=== PATIENT | female | born 1960 | race Caucasian/White ===

== ENCOUNTER 2016-11-28 15:45 | Outpatient (RCR) | payer MEDICARE, MEDICAID ==
[~2016-11-28 15:45] MED LIST: ALBUTEROL0.09 MG/A1 IH; ALBUTEROL1.25 MG/3 IH; ALEVE 220MG220 MG PO; AMOXICILLIN 50500 MG PO; ASPIRIN 32325 MG/TAB PO; CEFTIN500 MG PO; CELEXA10 MG PO; CELEXA40 MG PO; CEPHALEXIN500 M1 PO; CLEOCIN HC150 MG/CAP PO; FLEXERIL10 MG PO; IPRATROPIUM BROM3 M1 IH; LORTAB 5/500 501 TAB PO; MAGIC MOUTHWASH1 M2 PO; MULTI VITAMINS1 TAB PO; NEXIUM 20MG20 MG PO; NEXIUM 40MG40 MG PO; NORCO 325 MG-51 TAB PO; PROVENTIL0.09 MG/A1 IH; PYRIDIUM200 M1 PO; SEPTRA DS 8001 TAB PO; SINGULAIR 110 MG/TAB PO; ULTRAM 50MG TAB50 MG PO; VENTOLIN0.09 MG IH; VITAMIN D 1001000 IU PO; VITAMIN D 50,1.25 MG PO; ZOLOFT 100MG100 MG PO
== END 2017-02-19 | disposition home or self-care (01) ==
LOC: MKS.ESL.OT
DX: S46.812D Strain of other muscles, fascia and tendons at shoulder and upper arm level, left arm, subsequent encounter (principal); X58.XXXD Exposure to other specified factors, subsequent encounter

== ENCOUNTER 2017-04-06 16:01 | Outpatient (RCR) | payer MEDICARE, MEDICAID | END 2017-04-10 11:12 | disposition still patient (30) | LOC: WSPT 16:01 | DX: Z01.818 Encounter for other preprocedural examination (principal) | CPT/HCPCS: G8978-GP; G8979-GP; G8980-GP ==

== ENCOUNTER 2017-05-28 16:15 | Outpatient (RCR) | payer MEDICARE, MEDICAID | END 2017-06-08 12:26 | disposition still patient (30) | LOC: WSPT 16:15 | DX: Z96.652 Presence of left artificial knee joint (principal) | CPT/HCPCS: G8978-GP; G8979-GP ==

== ENCOUNTER 2018-01-19 02:59 | Emergency (ER) | payer MEDICARE, MEDICAID ==
[~2018-01-19] VITALS: Ht 157.5 cm; Wt 74.1 kg
[2018-01-19 03:04] VITALS: BP 135/80; PULSE 65; TEMP 98.2
[2018-01-19 03:29] LABS: COLLECTION METHOD CLEAN CATCH
[2018-01-19 03:34] LABS: PH 6 (5-8); SQUAMOUS EPITHELIAL 0-2 /hpf; URINE APPEARANCE Clear; URINE BACTERIA None Seen /hpf; URINE BILIRUBIN Negative (NEGATIVE); URINE BLOOD Negative (NEGATIVE); URINE COLOR Straw; URINE GLUCOSE Negative (NEGATIVE); URINE KETONE Negative (NEGATIVE); URINE LEUKOCYTE ESTERASE Negative (NEGATIVE); URINE NITRATE Negative (NEGATIVE); URINE PROTEIN(semi-quant) Negative (NEGATIVE); URINE RBC 0-2 /hpf; URINE UROBILINOGEN Negative (NEGATIVE)
== END 2018-01-19 04:02 | disposition home or self-care (01) ==
LOC: COL.ER 02:59
PROVIDERS: Emergency Medicine
DX: R31.9 Hematuria, unspecified (principal); J45.909 Unspecified asthma, uncomplicated; Z90.710 Acquired absence of both cervix and uterus

== ENCOUNTER → 2018-06-04 | Outpatient (CLI) | payer MEDICARE, MEDICAID | LOC: COL.RAD 05-27 11:30 | DX: J98.11 Atelectasis (principal); R59.9 Enlarged lymph nodes, unspecified; Z90.710 Acquired absence of both cervix and uterus; M51.36 Other intervertebral disc degeneration, lumbar region; C91.10 Chronic lymphocytic leukemia of B-cell type not having achieved remission | CPT/HCPCS: Q9967 ==

== ENCOUNTER 2018-09-12 19:59 | Emergency (ER) | payer MEDICARE ==
[~2018-09-12] VITALS: Ht 160 cm; Wt 75.5 kg
[2018-09-12 20:07] VITALS: TEMP 99
[2018-09-12] MEDS ORDERED: ALBUTEROL1.25 MG/3 IH (20:20)
[2018-09-12 20:43] LABS: BASO % 0.5 % (0.0-2.0); EOS # 0.3 (0.0-0.7); EOS % 4.5 % (0-4.0); GRAN # 3.2 (1.4-6.5); HEMOGLOBIN 11.9 g/dl (12.5-16.0); LYMPH # 2.2 (1.2-3.4); LYMPH % 35.1 % (20.0-51.0); MEAN CELL VOLUME 96 fl (80.0-100.0); MEAN CORPUSCULAR HEMOGLOBIN 32 pg (27.0-31.0); MEAN CORPUSCULAR HGB CONC 33 g/dl (33.0-37.0); MEAN PLATELET VOLUME 10.2 fl (7.4-10.4); MONO # 0.5 (0.1-0.6); MONO % 8.6 % (1.7-9.3); PLATELET COUNT 193 K/mm3 (130-400); RED BLOOD COUNT 3.73 M/mm3 (4.10-5.30); REDCELL DISTRIBUTION WIDTH-CV 12.4 % (11.5-14.5)
[2018-09-12 20:45] LABS: HEMATOCRIT 35.9 % (37.0-47.0)
[2018-09-12 20:57] LABS: ALANINE AMINOTRANSFERASE 32 U/L (9-52); ALKALINE PHOSPHATASE 140 U/L (50-136); ANION GAP 6 mmol/L (7-16); AST,SGOT 24 U/L (15-37); BILIRUBIN,TOTAL 0.3 mg/dL (0.0-1.0); BLOOD UREA NITROGEN 17 mg/dL (7-17); CALCIUM 9.1 mg/dL (8.4-10.2); CARBON DIOXIDE 30 mmol/L (22-30); CHLORIDE 103 mmol/L (98-107); CREATININE, serum 1.35 mg/dL (0.52-1.25); GLUCOSE 169 mg/dL (74-106); SODIUM 139 mmol/L (137-145)
[2018-09-12 21:26] LABS: TROPONIN-I < 0.012 ng/mL (0.000-0.034)
[2018-09-12] MEDS ORDERED: ZITHROMAX Z PA250 MG PO (21:54)
[2018-09-12] MEDS ORDERED: TESSALON P100 MG/CAP PO (21:54)
[2018-09-12 22:13] VITALS: BP 106/68; PULSE 72
[2018-09-12] MEDS ORDERED: PROAIR HFA0.09 MG/AC IH (23:54)
== END 2018-09-12 22:14 | disposition home or self-care (01) ==
LOC: COL.ER 19:59
PROVIDERS: Emergency Medicine
DX: J45.901 Unspecified asthma with (acute) exacerbation (principal); J20.9 Acute bronchitis, unspecified; Z90.710 Acquired absence of both cervix and uterus

== ENCOUNTER 2019-03-29 03:08 | Emergency (ER) | payer MEDICARE ==
[~2019-03-29] VITALS: Ht 160 cm; Wt 81.8 kg
[~2019-03-29 03:08] MED LIST changes: +PROAIR HFA0.09 MG/AC IH; +TESSALON P100 MG/CAP PO; +ZITHROMAX Z PA250 MG PO
[2019-03-29 03:16] VITALS: BP 137/84; TEMP 98.5
[2019-03-29] MEDS ORDERED: PREDNISONE20 MG PO (03:28)
[2019-03-29 04:07] VITALS: PULSE 67
== END 2019-03-29 04:05 | disposition home or self-care (01) ==
LOC: COL.ER 03:08
DX: R05 Cough (principal); Z98.51 Tubal ligation status; Z90.710 Acquired absence of both cervix and uterus; Z87.09 Personal history of other diseases of the respiratory system

== ENCOUNTER 2019-04-11 08:40 | Emergency (ER) | payer MEDICARE ==
[~2019-04-11] VITALS: Ht 157.5 cm; Wt 100.0 kg
[~2019-04-11 08:40] MED LIST changes: +PREDNISONE20 MG PO
[2019-04-11 08:47] VITALS: BP 155/87
[2019-04-11 09:10] VITALS: PULSE 75; TEMP 97.7
== END 2019-04-11 09:10 | disposition home or self-care (01) ==
LOC: COL.ER 08:40
DX: T63.441A Toxic effect of venom of bees, accidental (unintentional), initial encounter (principal); Z90.710 Acquired absence of both cervix and uterus; Z86.718 Personal history of other venous thrombosis and embolism; Z98.51 Tubal ligation status; Z98.890 Other specified postprocedural states

== ENCOUNTER → 2019-08-18 | Outpatient (CLI) | payer MEDICARE ==
[2019-08-19 17:17] LABS: PROCALCITONIN 0.03 ng/mL (0.00-0.09)
[2019-08-19 17:42] LABS: RHEUMATOID FACTOR-SCREEN <15 IU/mL (0-29)
== END ==
LOC: COL.LAB 15:27
PROVIDERS: Internal Medicine Pulmonary Disease
DX: R93.89 Abnormal findings on diagnostic imaging of other specified body structures (principal)

== ENCOUNTER 2021-05-13 04:27 | Emergency (ER) | payer MEDICARE ==
[~2021-05-13] VITALS: Ht 157.5 cm; Wt 103.6 kg
[2021-05-13 06:09] VITALS: BP 151/91; PULSE 80; TEMP 97.9
== END 2021-05-13 06:09 | disposition home or self-care (01) ==
LOC: COL.ER 04:27
DX: S80.02XA Contusion of left knee, initial encounter (principal); S50.12XA Contusion of left forearm, initial encounter; Z98.890 Other specified postprocedural states; W01.198A Fall on same level from slipping, tripping and stumbling with subsequent striking against other object, initial encounter

== ENCOUNTER → 2021-06-10 | Outpatient (CLI) | payer MEDICARE | LOC: COL.RAD 07:56 | DX: R11.2 Nausea with vomiting, unspecified (principal); R10.12 Left upper quadrant pain | CPT/HCPCS: A9541 ==

== ENCOUNTER 2021-06-21 14:15 | Outpatient (RCR) | payer MEDICARE | END 2021-08-21 | disposition home or self-care (01) | LOC: WSPT | DX: M25.562 Pain in left knee (principal) | CPT/HCPCS: G0283-GP ==

== ENCOUNTER 2021-08-11 17:23 | Emergency (ER) | payer MEDICARE ==
[~2021-08-11] VITALS: Ht 157.5 cm; Wt 85.5 kg
[2021-08-12 01:09] VITALS: BP 134/78; PULSE 77; TEMP 97.9
== END 2021-08-11 21:20 | disposition home or self-care (01) ==
LOC: COL.ER 17:23
DX: S83.92XA Sprain of unspecified site of left knee, initial encounter (principal); Z96.652 Presence of left artificial knee joint; W18.30XA Fall on same level, unspecified, initial encounter; Y93.01 Activity, walking, marching and hiking
CPT/HCPCS: 31289; L1830; L1846

== ENCOUNTER → 2021-10-07 | Outpatient (CLI) | payer MEDICARE | LOC: MHCPAIN 12:38 | DX: M25.512 Pain in left shoulder (principal); Z91.81 History of falling ==

== ENCOUNTER → 2021-10-25 | Outpatient (CLI) | payer MEDICARE | LOC: COL.RAD 11:48 | DX: M67.814 Other specified disorders of tendon, left shoulder (principal) ==

== ENCOUNTER → 2021-10-26 | Outpatient (CLI) | payer MEDICARE | LOC: MHCPAIN 11:50 | CPT/HCPCS: J1040; J1100 ==

== ENCOUNTER → 2021-12-07 | Outpatient (CLI) | payer MEDICARE | LOC: MHCPAIN 13:20 | DX: M75.52 Bursitis of left shoulder (principal); M75.42 Impingement syndrome of left shoulder | CPT/HCPCS: J1040 ==

== ENCOUNTER 2021-12-23 10:21 | Day surgery (SDC) | payer MEDICARE ==
[~2021-12-23] VITALS: Ht 160 cm; Wt 99.5 kg
[2021-12-23 11:34] VITALS: BP 139/84; PULSE 63; TEMP 98.1
[2021-12-23] MEDS ORDERED: LEXAPRO20 MG PO (12:55)
[2021-12-23] MEDS ORDERED: PROTONIX 40MG T40 MG PO (12:56)
[2021-12-23] MEDS ORDERED: FLEXERIL 1010 MG/TAB PO (12:56)
[2021-12-23 16:40] VITALS: BP 119/49; PULSE 86; TEMP 98.2
--- NOTE | 2021-12-23 16:40 | NUR ---
Patient arrived from PACU after recieving a full general anasthesia. The patient is alert and oriented x3. Boyfriend and daughter are present. Vitals obtained. 1L of O2 continues via nasal cannula and stats remain above 95%. The patient requested Sprite and crackers. Call granados is within reach. Side rails x2.
[2021-12-23 16:55] VITALS: BP 129/73; PULSE 86
--- NOTE | 2021-12-23 16:55 | NUR ---
Vitals obtained. Patient denies nausea. No vomiting. Will continue to monitor per intervals. Call granados remains within reach.
[2021-12-23 17:10] VITALS: BP 126/55; PULSE 85
--- NOTE | 2021-12-23 17:10 | NUR ---
Vitals obtained. The patient was assisted to bedside before ambulating to the bathroom using a walker. Gait is steady. Daughter stayed in the bathroom with her mother. The patient was able to successfully void and was assisted back to bed. IV was then discontinued. Catheter tip intact. Pressure dressing applied. No redness or swelling noted. The patient was then assisted into her personal clothes by her daughter and BIJU Leiva. Call granados remains within reach.
[2021-12-23] MEDS ORDERED: MOTRIN 600600 MG/TAB PO (17:18)
[2021-12-23] MEDS ORDERED: NORCO 325 MG-51 TAB PO (17:18)
--- NOTE | 2021-12-23 17:25 | NUR ---
DC instructions and educational material was reviewed with the patient, her daughter and boyfriend. All three verbalized understanding and the patient signed the realted paperwork. The patient was then assisted into a wheelchair and was escorted out to the ED entrence by BIJU Perrin. The patient's daughter has her DC packet and the patient's personal belongings in the white patient bag. The patient was tranferred into the care of Raghav, who is present to drive.
[2022-01-02] MEDS ORDERED: LEXAPRO20 MG PO (19:40)
[2022-01-02] MEDS ORDERED: NORCO 325 MG-51 TAB PO (19:42)
== END 2021-12-23 17:45 | disposition home or self-care (01) ==
LOC: SDCO 10:21
DX: K80.10 Calculus of gallbladder with chronic cholecystitis without obstruction (principal); J45.909 Unspecified asthma, uncomplicated; G89.29 Other chronic pain; M54.9 Dorsalgia, unspecified; E66.9 Obesity, unspecified; E11.22 Type 2 diabetes mellitus with diabetic chronic kidney disease; N18.30 Chronic kidney disease, stage 3 unspecified; F32.A Depression, unspecified; F41.9 Anxiety disorder, unspecified; Z79.899 Other long term (current) drug therapy; Z87.19 Personal history of other diseases of the digestive system; Z92.21 Personal history of antineoplastic chemotherapy; Z85.828 Personal history of other malignant neoplasm of skin; Z68.39 Body mass index [BMI] 39.0-39.9, adult; Z90.710 Acquired absence of both cervix and uterus; Z98.51 Tubal ligation status; Z80.3 Family history of malignant neoplasm of breast; Z82.3 Family history of stroke
CPT/HCPCS: J0690; J1100; J2405; J2704; J3010; J7120

== ENCOUNTER 2021-12-30 19:23 | Emergency (ER) | payer MEDICARE ==
[~2021-12-30] VITALS: Ht 160 cm; Wt 84.1 kg
[~2021-12-30 19:23] MED LIST changes: +FLEXERIL 1010 MG/TAB PO; +LEXAPRO20 MG PO; +MOTRIN 600600 MG/TAB PO; +PROTONIX 40MG T40 MG PO
[2021-12-30 19:31] VITALS: TEMP 97.8
[2021-12-30] MEDS ORDERED: DOXYCYCLINE HY100 MG PO (19:48)
[2021-12-30 19:52] VITALS: BP 144/80; PULSE 79
[2022-01-02] MEDS ORDERED: LEXAPRO20 MG PO (19:40)
[2022-01-02] MEDS ORDERED: NORCO 325 MG-51 TAB PO (19:42)
== END 2021-12-30 19:52 | disposition home or self-care (01) ==
LOC: COL.ER 19:23
DX: T81.49XA Infection following a procedure, other surgical site, initial encounter (principal); Z90.49 Acquired absence of other specified parts of digestive tract

== ENCOUNTER → 2022-01-02 | Outpatient (CLI) | payer MEDICARE ==
[~2022-01-02] MED LIST changes: +DOXYCYCLINE HY100 MG PO
== END ==
LOC: COL.LAB 17:50
DX: T81.49XA Infection following a procedure, other surgical site, initial encounter (principal)

== ENCOUNTER → 2022-01-18 | Outpatient (CLI) | payer MEDICARE | LOC: MHCPAIN 12:51 | DX: M75.52 Bursitis of left shoulder (principal); M75.02 Adhesive capsulitis of left shoulder; M25.512 Pain in left shoulder | CPT/HCPCS: G0463 ==

== ENCOUNTER → 2023-01-10 | Outpatient (CLI) | payer MEDICARE | LOC: COL.RAD 09:45 | DX: J18.1 Lobar pneumonia, unspecified organism (principal); C91.11 Chronic lymphocytic leukemia of B-cell type in remission ==

== ENCOUNTER → 2024-03-05 | Outpatient (CLI) | payer MEDICARE ==
[~2024-03-05] MED LIST changes: +AMOXICILLIN 8751 TAB PO; +ZOFRAN ODT4 MG PO
== END ==
LOC: MC.RAD 14:00
DX: Z12.31 Encounter for screening mammogram for malignant neoplasm of breast (principal)

== ENCOUNTER 2024-04-12 22:02 | Emergency (ER) | payer MEDICARE ==
[~2024-04-12] VITALS: Ht 152.4 cm; Wt 89.1 kg
[2024-04-12 22:10] VITALS: TEMP 98.2
[2024-04-12 22:57] VITALS: BP 126/86; PULSE 78
[2024-04-12] MEDS ORDERED: Amoxicillin/Clavulanate K+ 875/125 MG TAB PO ONE (23:00)
== END 2024-04-12 22:57 | disposition home or self-care (01) ==
LOC: COL.ER 22:02
DX: S61.211A Laceration without foreign body of left index finger without damage to nail, initial encounter (principal); S51.811A Laceration without foreign body of right forearm, initial encounter; W54.0XXA Bitten by dog, initial encounter

== ENCOUNTER 2024-08-31 13:42 | Emergency (ER) | payer MEDICARE ==
[~2024-08-31] VITALS: Ht 154.9 cm; Wt 87.3 kg
[2024-08-31 14:01] VITALS: TEMP 98.1
[2024-08-31] MEDS ORDERED: AMOXICILLIN 8751 TAB PO (14:19)
[2024-08-31 14:27] VITALS: BP 170/84; PULSE 69
== END 2024-08-31 14:31 | disposition home or self-care (01) ==
LOC: COL.ER 13:42
DX: S51.851A Open bite of right forearm, initial encounter (principal); F17.200 Nicotine dependence, unspecified, uncomplicated; Z85.6 Personal history of leukemia; W54.0XXA Bitten by dog, initial encounter